=== PATIENT | female | born 1995 | race Caucasian/White ===

== ENCOUNTER 2016-10-10 18:23 | Emergency (ER) | payer OTHER ==
[~2016-10-10] VITALS: Ht 177.8 cm; Wt 66.5 kg
[2016-10-10 19:54] LABS: BASO % 0.3 % (0.0-1.0); EOS # 0.2 K/mm3 (0.0-0.50); EOS % 1.8 % (0.0-3.0); LARGE UNSTAINED CELL # 0.1 K/mm3 (0.0-0.4); LYMPH # 2.3 K/mm3 (1.5-6.5); LYMPH % 20.4 % (24.0-44.0); MEAN CORPUSCULAR HEMOGLOBIN 26.3 pg (27.0-33.0); MEAN CORPUSCULAR HGB CONC 32.7 g/dl (32.0-36.5); MEAN CORPUSCULAR VOLUME 80.4 fl (80.0-96.0); MONO # 0.5 K/mm3 (0.0-0.8); MONO % 4.8 % (0.0-5.0); NEUTROPHILS # 7.8 K/mm3 (1.8-7.7); NEUTROPHILS % 71.7 % (36.0-66.0); PLATELET COUNT, AUTOMATED 341 k/mm3 (150-450); RED CELL DISTRIBUTION WIDTH 14.2 % (11.5-14.5); WHITE BLOOD COUNT 10.9 K/mm3 (4.0-10.0)
[2016-10-10 21:12] VITALS: BP 134/87
--- NOTE | 2016-10-10 22:00 | REPUSA ---
CLINICAL HISTORY: Vaginal bleeding. TECHNIQUE: Realtime sonographic images were obtained in multiple projections. COMMENTS: The uterus is retroverted, measures 8.11 x 4.1 cm. Heterogeneous structure is noted lower endometria l canal suspicious for blood clot. There is no evidence of intrauterine . The right ovary measures 2.8 x 1.9 x 1.9 cm. The left ovary measures 2.9 x 1.2 x 2.3 cm. Both ovari es are free of masses. There is a small amount of fluid noted in the cul-de-sac. IMPRESSION: There is no evidence of intrauterine . The findings are most compatible with missed abortio n, although please correlate clinically to exclude ectopic. Consider short-term follow-up study as c linically warranted.
== END 2016-10-10 21:31 | disposition home or self-care (01) ==
LOC: M ED 18:23
DX: O03.9 Complete or unspecified spontaneous abortion without complication (principal)

== ENCOUNTER → 2016-10-12 | Outpatient (CLI) | payer OTHER | LOC: M LAB 13:39 | PROVIDERS: ATTEND Physician Assistant Surgical | DX: O20.0 Threatened abortion (principal); Z3A.01 Less than 8 weeks gestation of pregnancy ==